=== PATIENT | male | born 1980 | race Caucasian/White ===

== ENCOUNTER 2017-04-07 16:23 | Outpatient (RCR) | payer OTHER, SELFPAY ==
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
--- NOTE | 2017-08-18 10:09 | HP.PTDCNRP_ITS ---
HP - Discharge Summary (1) - Patient Information FARSHAD NULL was seen in my office for initial evaluation on 04/07/17. The following Plan of Care was established for this patient: Initial Frequency: 1x/Week Initial Duration: 5 WEEKS - Anticipated Interventions Patient/Client Instruction: Educate patient on: Condition, Plan of Care, Risk Factors, Benefits of Fitness Program For the Purpose of:: To improve self management Therapeutic Exercise to Include: Strength training, Body mechanics, Postural training, Flexibilty training, Scapular Strength/Stabilization For the Purpose of:: To improve ability of physical actions for home/community/ work/leisure This patient was last seen in our office 04/07/17. Pertinent comments regarding their Physical therapy will appear below: This patient has not returned to Physical Therapy and is appropriate to return to MD for further follow-up as needed. At this point I will be discontinuing this patient from physical therapy. I would be happy to see this patient again in the future if found appropriate by the physician. Thank you! Camila Unger
== END 2017-04-07 19:00 | disposition home or self-care (01) ==
LOC: PT 16:23
PROVIDERS: Family Provider Family Medicine; PCP Family Medicine; Visit Provider Family Medicine
DX: M54.6 Pain in thoracic spine (principal); G89.29 Other chronic pain
CPT/HCPCS: 97161

== ENCOUNTER → 2017-10-19 13:51 | Outpatient (CLI) | payer OTHER, SELFPAY ==
--- NOTE | 2017-10-19 13:53 | ECHOD_ITS ---
Reason For Study: PVCs, dizziness. Procedure This was a 2D Doppler, Color Flow transthoracic echocardiogram. The exam was of fair technical quality due to body habitus. Exam performed in department. Left Ventricle Normal LV size. Left ventricular systolic function is normal. The estimated ejection fraction is 60 %. No evidence for diastolic dysfunction. No regional wall motion abnormalities noted. Right Ventricle Normal RV size. Normal systolic function. Atria Normal left atrium. Normal right atrium. No doppler evidence for ASD. Mitral Valve There is no mitral annular calcification. Normal mitral valve. Trivial mitral valve insufficiency. Tricuspid Valve Normal tricuspid valve. Trivial tricuspid valve insufficiency. Aortic Valve Trisinus/trileaflet aortic valve. Normal aortic valve. Pulmonic Valve The pulmonic valve is not well visualized. Great Vessels Normal sized aortic root. Pericardium/Pleural No pericardial effusion. MMode/2D Measurements & Calculations LVIDd: 4.6 cm IVSd: 1.0 cm Ao root diam: 2.7 cm LVIDs: 3.4 cm LVPWd: 1.0 cm RVDd: 3.3 cm FS: 27.2 % LAV(MOD-bp): 51.9 ml LA A4 area: 18.4 cm2 RA A4 area: 12.9 cm2 LAV(MOD-bp) Indexed: 23.6 ml/m2 LAV(MOD-sp2): 48.2 ml LAV(MOD-sp4): 55.8 ml Doppler Measurements & Calculations MV E max nabeel: 66.6 cm/sec Lat Peak E' Nabeel: 14.2 cm/sec Med Peak E' Nabeel: 10.4 cm/sec MV A max nabeel: 56.1 cm/sec E/E' lat: 4.7 E/E' med: 6.4 MV E/A: 1.2 Ao V2 max: 125.8 cm/sec LV V1 max: 88.0 cm/sec PA V2 max: 96.1 cm/sec Ao max P.3 mmHg LV V1 max P.1 mmHg PI dec slope: 343.8 cm/sec2 Interpretation Summary Left ventricular systolic function is normal. The estimated ejection fraction is 60 %. Trivial mitral valve insufficiency. Trivial tricuspid valve insufficiency. No evidence for diastolic dysfunction. Ordering Physician: Robert Menendez Referring Physician: Nazario Serrano Performed By: Elizabeth Cobb, CORAL, RVT
== END ==
PROVIDERS: Family Provider Family Medicine; PCP Family Medicine; Visit Provider Internal Medicine Cardiovascular Disease
DX: R42 Dizziness and giddiness (principal)
CPT/HCPCS: 93306

== ENCOUNTER → 2019-02-10 11:16 | Outpatient (CLI) | payer OTHER, SELFPAY ==
[2018-12-30 15:36] VITALS: BMI 32.0
--- NOTE | 2019-02-10 11:22 | US_ITS ---
STUDY: RENAL ULTRASOUND - COMPLETE REASON FOR EXAM: Male, 38 years old. Right flank pain. History of renal stones. TECHNIQUE: Ultrasound evaluation of the kidneys was performed with real-time and static mensah-scale imaging. COMPARISON: CT abdomen with oral contrast only April 27, 2016 FINDINGS: RIGHT KIDNEY: Normal location of the right kidney, which is normal in size. The right kidney measures 10.9 x 4.8 x 4.7 cm. There is a normal cortex of the right kidney. The renal cortex measures 1.7 cm. There is no right renal mass or cyst. Elongated 11 x 8 mm hyperechoic focus in the lower pole suggests a nonobstructing stone. There is no right hydronephrosis. DISTAL RIGHT URETER: There is non-visualization of the distal right ureter. There is no demonstrated right ureterovesical junction calculus. There is no demonstrated right ureteral jet. LEFT KIDNEY: Normal location of the left kidney, which is normal in size. The left kidney measures 11.4 x 5.1 x 6.4 cm. There is a normal cortex of the left kidney. The renal cortex measures 1.7 cm. There is no left renal mass or cyst. There are no left renal calculi. There is no left hydronephrosis. DISTAL LEFT URETER: There is non-visualization of the distal left ureter. There is no demonstrated left ureterovesical junction calculus. There is no demonstrated left ureteral jet. BLADDER: The urinary bladder was empty at the time of scanning, precluding evaluation. US/Kidney and Bladder IMPRESSION: 11 mm nonobstructing stone suggested at the lower pole of the right kidney. No hydronephrosis. Electronically Signed: Kenn Randolph MD at 14:05 EDT , Service support ,
== END ==
PROVIDERS: Family Provider Family Medicine; PCP Family Medicine; Referring Provider Family Medicine; Visit Provider Family Medicine
DX: N20.0 Calculus of kidney (principal)
CPT/HCPCS: 76770

== ENCOUNTER → 2019-02-22 | Outpatient (CLI) | payer OTHER, SELFPAY ==
[2018-12-30 15:36] VITALS: BMI 32.0
--- NOTE | 2019-02-22 16:45 | CT_ITS ---
STUDY: CT ABDOMEN AND PELVIS WITHOUT CONTRAST REASON FOR EXAM: Male, 38 years old. Right flank pain RADIATION DOSAGE (If Supplied By Facility): DLP = ( 1086.18 ) mGycm TECHNIQUE: Transaxial images were obtained from the dome of the diaphragm to the symphysis pubis without oral contrast, and without intravenous contrast. Sagittal and coronal images were reconstructed. Individualized dose optimization techniques were used for this CT. COMPARISON: CT abdomen April 27, 2016 FINDINGS: Evaluation of the abdominal viscera is limited in the absence of intravenous contrast. Right lung base groundglass and tree-in-bud opacities are present. The left lung base is clear. The visualized portions of the heart and pericardium are within normal limits. There are no calcified gallstones present. The liver demonstrates an unremarkable unenhanced appearance. The spleen is normal in size. The pancreas demonstrates an unremarkable unenhanced appearance. The adrenal glands are within normal limits. There are no obstructing renal stones. There is no hydronephrosis. Normal visualized stomach. There is no bowel obstruction or inflammation. Mild colonic diverticulosis is present. The appendix is normal. The aorta is normal in caliber. There is no abdominal or pelvic free air, free fluid, fluid collection or lymphadenopathy. There are no destructive osseous lesions. CT/Abdomen/Pelvis without Cont IMPRESSION: No acute abdominal or pelvic pathology demonstrated on this noncontrast CT. Mild colonic diverticulosis without evidence of inflammation. Electronically Signed: Robin Martinez, at 17:34 EDT Tel , Service support ,
== END | disposition home or self-care (01) ==
LOC: CT 16:43
PROVIDERS: Family Provider Family Medicine; PCP Family Medicine; Referring Provider Urology; Visit Provider Urology
DX: R31.9 Hematuria, unspecified (principal)
CPT/HCPCS: 74176

== ENCOUNTER → 2019-02-24 10:08 | Outpatient (CLI) | payer OTHER, SELFPAY ==
[2018-12-30 15:36] VITALS: BMI 32.0
[2019-02-24 12:19] LABS: Erythrocyte Sedimentation Rate 18 mm/hr (0-15)
[2019-02-24 12:24] LABS: Absolute Lymphocyte Count 1.52 X10^3/uL (0.83-4.51); Absolute Neutrophil Count 8.3 X10^3/uL (2.0-7.7); Basophil# 0.03 X10^3/uL; Basophil% 0.3 % (0-1); Eosinophil# 0.42 X10^3/uL; Eosinophils% 3.8 % (0-5); Hematocrit 43.9 % (40-54); Hemoglobin 14.5 g/dL (13.0-16.5); Lymphocyte # 1.52 X10^3/ul (4.0); Lymphocyte % 13.9 % (19-41); Mean Corpuscular Hgb 28.4 pg (27.0-32.0); Mean Corpuscular Volume 85.9 fL (80-94); Mean Platelet Vol. 11.8 fl (6.2-12.0); Monocyte# 0.61 X10^3/uL; Monocyte% 5.6 % (0-10); NRBC Flagged by Analyzer 0 % (0-5); Neutrophil # 8.28 X10^3/uL (2.7-7.7); Neutrophil % 75.8 % (47-70); Platelet Count 270 K/mm3 (150-450); Red Blood Count 5.11 M/mm3 (4.6-6.2); White Blood Count 10.9 K/mm3 (4.4-11.0)
[2019-02-24 12:45] LABS: AST(SGOT) 26 U/L (15-37); Alanine Aminotransfer ALT/SGPT 53 U/L (16-61); Albumin, Serum 3.8 g/dL (3.2-5.0); Alkaline Phosphatase 124 U/L (45-117); Anion Gap 7 (5-15); BUN 12 mg/dL (7-18); BUN/Creat Ratio 11.5 RATIO (10-20); Calcium,Total 9.2 mg/dL (8.5-10.1); Chloride 108 mmol/L (98-107); Creatinine, Serum 1.04 mg/dL (0.70-1.30); EST Glomerular Filtration Rate 85 mL/min (>60); Est Glom Filt Rate - Afr Amer 103 mL/min (>60); Glucose 88 mg/dL (74-106); Potassium 4.4 mmol/L (3.5-5.1); Protein, Total 7.8 g/dL (6.4-8.2); Rheumatoid Factor < 10.0 IU/mL (<15); Sodium Level 140 mmol/L (136-145)
[2019-02-28 09:55] LABS: ANTINUCLEAR ANTIBODIES DIRECT Negative (Negative)
== END ==
PROVIDERS: Family Provider Family Medicine; PCP Family Medicine; Visit Provider Family Medicine
DX: R91.8 Other nonspecific abnormal finding of lung field (principal)
CPT/HCPCS: 36415; 80053; 85025; 85652; 86038; 86140; 86431; 87385

== ENCOUNTER → 2019-03-09 06:47 | Outpatient (CLI) | payer OTHER, SELFPAY ==
[2018-12-30 15:36] VITALS: BMI 32.0
--- NOTE | 2019-03-09 06:49 | CT_ITS ---
STUDY: CT CHEST WITHOUT CONTRAST REASON FOR EXAM: Male, 38 years old. Groundglass appearance on prior chest radiograph. RADIATION DOSAGE (If Supplied By Facility): CTDIvol = ( 17.48 ) mGy, DLP = ( 607.31 ) mGycm TECHNIQUE: Transaxial imaging was performed without the administration of intravenous contrast material. Multiplanar coronal and sagittal images were reformatted. Individualized dose optimization techniques were used for this CT. COMPARISON: None. FINDINGS: The lungs are normal. There is no demonstrated pleural abnormality. Normal heart and pericardium. There are multiple small lymph nodes within the mediastinum, which are normal in size and morphology most compatible with reactive lymph hyperplasia. Normal hilar regions. Normal unenhanced pulmonary arteries. Normal aorta arch and descending thoracic aorta. Normal osseous structures. Small hiatal hernia. CT/Chest without Contrast IMPRESSION: No acute abnormality is seen. Electronically Signed: Abebe May, at 10:17 EDT , Service support ,
== END ==
PROVIDERS: Family Provider Family Medicine; PCP Family Medicine; Referring Provider Family Medicine; Visit Provider Family Medicine
DX: R91.8 Other nonspecific abnormal finding of lung field (principal)
CPT/HCPCS: 71250

== ENCOUNTER → 2019-08-23 11:03 | Outpatient (CLI) | payer OTHER, SELFPAY ==
[2018-12-30 15:36] VITALS: BMI 32.0
== END ==
PROVIDERS: PCP Family Medicine; Referring Provider Nurse Practitioner Family; Visit Provider Nurse Practitioner Family
DX: R00.2 Palpitations (principal); R42 Dizziness and giddiness
CPT/HCPCS: 93225; 93226

== ENCOUNTER → 2023-04-20 | Outpatient (CLI) | payer BC, SELFPAY ==
[2023-04-20 08:06] LABS: Bacteria 0 SEEN /hpf (None Seen); Mucous, Urine 0 SEEN /hpf (<or=2+); Red Blood Cells-Urine 0 SEEN /hpf (0-5); Squamous Epithelial Cells - UA 0 SEEN /hpf (0-5); White Blood Cells 0 SEEN /hpf (0-5)
[2023-04-20 10:12] LABS: Absolute Lymphocyte Count 2.62 X10^3/uL (0.83-4.51); Absolute Neutrophil Count 3.3 X10^3/uL (2.0-7.7); Basophil# 0.04 X10^3/uL; Basophil% 0.6 % (0-1); Eosinophil# 0.41 X10^3/uL; Eosinophils% 5.9 % (0-5); Hematocrit 48.7 % (40-54); Hemoglobin 15.3 g/dL (13.0-16.5); Lymphocyte # 2.62 X10^3/ul (0.83-4.51); Lymphocyte % 37.9 % (19-41); Mean Corp Hgb Conc 31.4 g/dL (32-36); Mean Corpuscular Hgb 27.6 pg (27.0-32.0); Mean Corpuscular Volume 87.9 fL (80-94); Mean Platelet Vol. 12.7 fl (6.2-12.0); Monocyte# 0.48 X10^3/uL; Monocyte% 6.9 % (0-10); NRBC Flagged by Analyzer 0 % (0-5); Neutrophil # 3.33 X10^3/uL (2.7-7.7); Neutrophil % 48.3 % (47-70); Platelet Count 249 K/mm3 (150-450); RBC Distribution Width CV 13.7 % (11.6-14.6); RBC Distribution Width SD 44.1 fl (35.1-43.9); Red Blood Count 5.54 M/mm3 (4.6-6.2); White Blood Count 6.9 K/mm3 (4.4-11.0)
[2023-04-20 10:21] LABS: Color, Urine Yellow (Yellow); Glucose, Dipstick Normal (Normal); Ketone-Dipstick Negative (Negative); Leukocyte Esterase-Dipstick Negative /ul (Negative); Nitrite-Dipstick Negative (Negative); Occult Blood-Urine 25 /ul (Negative); Protein-Dipstick Negative (Negative); Specific Gravity, Urine 1.015 (1.002-1.030); Urine Bilirubin Dipstick Negative (Negative); Urine Clarity Clear (Clear); Urine Urobilinogen Normal (Normal)
[2023-04-20 10:52] LABS: AST(SGOT) 17 U/L (15-37); Alanine Aminotransfer ALT/SGPT 41 U/L (16-61); Albumin, Serum 3.8 g/dL (3.2-5.0); Alkaline Phosphatase 98 U/L (45-117); Anion Gap 2 (5-15); BUN 10 mg/dL (7-18); BUN/Creat Ratio 10.6 RATIO (10-20); Calcium,Total 9.3 mg/dL (8.5-10.1); Chloride 109 mmol/L (98-107); Cholesterol 175 mg/dL (200); Creatinine, Serum 0.95 mg/dL (0.70-1.30); EST Glomerular Filtration Rate 93 mL/min (>60); Est Glom Filt Rate - Afr Amer 112 mL/min (>60); Globulin 3.7 g/dL (2.2-4.2); Glucose 95 mg/dL (74-106); High Density Lipoprotein 50 mg/dL; Potassium 4.5 mmol/L (3.5-5.1); Protein, Total 7.5 g/dL (6.4-8.2); Sodium Level 139 mmol/L (136-145); Triglycerides 102 mg/dL; Very Low Density Lipoprotein 20 mg/dL (5-40)
== END | disposition home or self-care (01) ==
LOC: MFPLAB 08:04
PROVIDERS: Nurse Practitioner Family; PCP Family Medicine; Visit Provider Family Medicine
DX: Z13.1 Encounter for screening for diabetes mellitus (principal); Z13.220 Encounter for screening for lipoid disorders; R10.9 Unspecified abdominal pain
CPT/HCPCS: 36415; 80053; 80061; 81001; 85025

== ENCOUNTER → 2025-05-08 | Outpatient (CLI) | payer OTHER, SELFPAY ==
[2025-05-08 12:27] LABS: Hematocrit 46.1 % (40-54); Hemoglobin 15.3 g/dL (13.0-16.5); Immature Granulocytes Count 0.030 X10^3/uL (0.0-0.0); Mean Corp Hgb Conc 33.2 g/dL (32-36); Mean Corpuscular Volume 84.7 fL (80-94); Mean Platelet Vol. 12.2 fl (6.2-12.0); NRBC Flagged by Analyzer 0 % (0-5); Platelet Count 255 K/mm3 (150-450); RBC Distribution Width CV 13.7 % (11.6-14.6); RBC Distribution Width SD 42.1 fl (35.1-43.9); Red Blood Count 5.44 M/mm3 (4.6-6.2); White Blood Count 8.1 K/mm3 (4.4-11.0)
[2025-05-08 12:58] LABS: AST(SGOT) 27 U/L (<=37); Alanine Aminotransfer ALT/SGPT 41 U/L (<=46); Albumin, Serum 4.5 g/dL (3.5-5.0); Alkaline Phosphatase 101 U/L (40-129); Anion Gap 10 (5-15); BUN 15 mg/dL (4-19); BUN/Creat Ratio 17.1 RATIO (10-20); Calcium,Total 9.8 mg/dL (7.6-11.0); Carbon Dioxide 25.5 mmol/L (21.0-32.0); Chloride 103 mmol/L (98-108); Cholesterol 197 mg/dL (<=200); Globulin 2.8 g/dL (2.2-4.2); Glucose 99 mg/dL (70-99); Low Density Lipoprotein Calc. 116 mg/dL; Potassium 4.5 mmol/L (3.3-5.1); Triglycerides 177 mg/dL; Uric Acid 7.2 mg/dL (3.5-7.2); Very Low Density Lipoprotein 35 mg/dL (5-40); cholesterol:hdl ratio screen 3.95
--- OUTSIDE RECORDS SUMMARY | 2025-05-08 13:57 | XMS RPT_ITS | CCD ---
Author Organization [facility] Care Team Providers Care Extraction Operator Name Role Phone ORACIO ALMAZANLATIA Unavailable Unavailable JONH GINNY Unavailable Unavailable ROBERT STRICKLAND Unavailable Unavailable Dr. Nazario Serrano Primary Care Provider [phone] Dr. Nazario Serrano Referring Provider Calos TRIPP, QASIM Nicholson Attending Provider Medications Current Medications Medication Drug Class(es) Dates Sig (Normalized) Sig (Original) cetirizine hydrochloride 10 mg oral tablet (1 source) Histamine-1 Receptor Antagonist Start: 01-01-2020 take 1 tablet by mouth once daily Cetirizine (Zyrtec) 10 mg tablet Active 10 MG PO DAILY January 01, 2020 12:00am famotidine 20 mg oral tablet (1 source) Histamine-2 Receptor Antagonist Start: 04-21-2023 take 20 mg by mouth once daily Famotidine Active 20 MG PO DAILY April 21, 2023 12:00am latanoprost 0.05 mg/ml ophthalmic solution (1 source) Prostaglandin Analog Start: 04-21-2023 Latanoprost Active 1 DRP OPHTHALMIC DAILY April 21, 2023 12:00am 24 hr metoprolol succinate 25 mg extended release oral tablet (6 sources) beta-Adrenergic Fabien Start: 02-18-2022 End: 10-22-2022 take 1 tablet by mouth once daily Metoprolol Succinate Active 0 .ROUTE .COMPLEX October 22, 2022 12:30pm TAKE 1 TABLET BY MOUTH EVERY DAY Start: 08-30-2019 End: 08-25-2021 take 1 tablet by mouth once daily Metoprolol Succinate Discontinued 0 .ROUTE .COMPLEX December 30, 2020 9:31am August 25, 2021 10:55am TAKE 1 TABLET BY MOUTH EVERY DAY Timolol (1 source) beta-Adrenergic Fabien Start: 04-21-2023 Timolo l Active 1 DRP OPHTHALMIC DAILY April 21, 2023 12:00am Completed/Discontinued Medications Medication Drug Class(es) Dates Sig (Normalized) Sig (Original) omeprazole 20 mg delayed release oral tablet (1 source) Proton Pump Inhibitor Start: 12-07-2017 End: 04-21-2023 take 1 tablet by mouth once daily Omeprazole Magnesium (Prilosec Otc) 20 mg tablet,delayed release (DR/EC) Discontinued 20 MG PO daily December 07, 2017 12:00am April 21, 2023 2:57pm travoprost 0.04 mg/ml ophthalmic solution (1 source) Prostaglandin Analog Start: 12-07-2017 End: 12-30-2018 take 0.004 drop(s) into the eye(s) once daily in the evening Travoprost (Travatan Z) 0.004 % drops Discontinued 1 DRP OPHTHALMIC EVERY EVENING December 07, 2017 12:00am December 30, 2018 3:37pm Problems Problem Classification Problem Date Documented Da te Episodic/Chronic Administrative/social admission (1 source) Patient encounter status; Translations: [Encounter for pre-employment examination] 05-31-2020 Episodic Cardiac dysrhythmias (3 sources) Ventricular premature depolarization; Translations: [Ectopic beats] Onset: 11-10-2017 02-07-2021 Chronic Cardiac dysrhythmias (1 source) Palpitations; Translations: [Palpitations] 12-30-2018 Episodic Conditions associated with dizziness or vertigo (1 source) Dizziness; Translations: [Dizziness and giddiness] 08-12-2017 Episodic Unclassified (1 source) Unknown / UNK(Unknown) Onset: 11-10-2017 Results Test Name Value Interpretation Reference Range Facility Absolute lymphocyte countOrd ered By: Carina Perry on 04-20-2023 Lymphocytes Auto (Unsp spec) [#/Vol] 2.62 10*3/uL 0.83-4.51 [facility] Basophil percentageOrdered B y: Carina Perry on 04-20-2023 Basophil percentage 0 SEEN /hpf 0-5 [facility] Basophils/100 WBC (Bld) 0.6 % 0-1 [facility] Bilirubin [Mass/Vol] 0.30 mg/dL 0.20-1.00 [facility] Comment on above: For patients on eltr ombopag therapy, use of Dimension [place] TBIL is not recommended. Chloride [Moles/Vol] 109 mmol/L 98-107 [facility] Cholesterol [Mass/Vol] 175 mg/dL <200 [facility] Comment on above: <200 mg/dL Desirable 200-240 mg/dL Borderline >240 mg/dL High Risk Eosinophils/100 WBC (Bld) 5.9 % 0-5 [facility] Glucose [Mass/Vol] 95 mg/dL 74-106 [facility] Neutrophils (Bld) [#/Vol] 3.3 10*3/uL 2.0-7.7 [facility] Neutrophils/100 WBC (Bld) 48.3 % 47-70 [facility] Potassium [Moles/Vol] 4.5 mmol/L 3.5-5.1 [facility] Protein [Mass/Vol] 7.5 g/dL 6.4-8.2 [facility] Sodium [Moles/Vol] 139 mmol/L 136-145 [facility] Triglyceride [Mass/Vol] 102 mg/dL <199 [facility] Comment on above: The drugs N-Acetylcy steine and Metamizole may falsely depress this assay.Serum Triglycerides Reference Interval Normal <150 mg/dL Borderline high 150 - 199 mg/dL High 200 - 499 mg/dL Very High > or = 500 mg/dL WBC (Bld) [#/Vol] 6.9 10*3/uL 4.4-11.0 [facility] Bilirubin Test strip Ql (U)O rdered By: Carina Perry on 04-20-2023 Bilirubin Ql (U) Negative Negative [facility] Blood erythrocytes count (nu mber/volume)Ordered By: Carina Perry on 04-20-2023 RBC (Bld) [#/Vol] 5.54 10*6/uL 4.6-6.2 [facility] Blood hemoglobin measurement (mass/volume)Ordered By: Carina Perry on 04-20-2023 Hemoglobin (Bld) [Mass/Vol] 15.3 g/dL 13.0-16.5 [facility] Blood lymphocytes/100 leukoc ytesOrdered By: Carina Perry on 04-20-2023 Lymphocytes/100 WBC (Bld) 37.9 % 19-41 [facility] Blood monocytes/100 leukocyt esOrdered By: Carina Perry on 04-20-2023 Monocytes/100 WBC (Bld) 6.9 % 0-10 [facility] Blood platelet mean volumeOr dered By: Carina Perry on 04-20-2023 Platelet mean volume (Bld) [Entitic vol] 12.7 fL 6.2-12.0 [facility] Determination of erythrocyte mean corpuscular volume (MCV)Ordered By: Carina Perry on 04-20-2023 MCV (RBC) [Entitic vol] 87.9 fL 80-94 [facility] Hematocrit Auto (Bld) [Volum e fraction]Ordered By: Carina Perry on 04-20-2023 Hematocrit (Bld) [Volume fraction] 48.7 % 40-54 [facility] Ketones Test strip Ql (U)Ord ered By: Carina Perry on 04-20-2023 Ketones Ql (U) Negative Negative [facility] Laboratory - Chemistry and C hemistry - challengeOrdered By: Carina Perry on 04-20-2023 ALP [Catalytic activity/Vol] 98 U/L 45-117 [facility] ALT [Catalytic activity/Vol] 41 U/L 16-61 [facility] CO2 [Moles/Vol] 28.0 mmol/L 21.0-32.0 [facility] Globulin (S) [Mass/Vol] 3.7 g/dL 2.2-4.2 [facility] Urea nitrogen/Creatinine [Mass ratio] 10.6 mg/mg 10-20 [facility] Laboratory - Hematology and Cell countsOrdered By: Carina Perry on 04-20-2023 Erythrocyte distribution width (RBC) [Entitic vol] 44.1 fL 35.1-43.9 [facility] Erythrocyte distribution width (RBC) [Ratio] 13.7 % 11.6-14.6 [facility] Immature granulocytes/100 WBC (Bld) 0.400 % 0.0-0.9 [facility] Comment on above: IG% - Immature Granu locytes (promyelocytes, myelocytes and metamyelocytes) > 1% indicates that a LEFT SHIFT is Present. MCH (RBC) [Entitic mass] 27.6 pg 27.0-32.0 [facility] Nucleated RBC/100 WBC (Bld) [Ratio] 0 % 0-5 [facility] MCHC Auto (RBC) [Mass/Vol]Or dered By: Carina Perry on 04-20-2023 MCHC (RBC) [Mass/Vol] 31.4 g/dL 32-36 [facility] Mucus LM Ql (Urine sed)Order ed By: Carina Perry on 04-20-2023 Mucus Ql (Urine sed) 0 SEEN /hpf [facility] Nitrite Test strip Ql (U)Ord ered By: Carina Perry on 04-20-2023 Nitrite Ql (U) Negative Negative [facility] No Panel InformationOrdered By: Carina Perry on 04-20-2023 Estimated GFR (MDRD) Amer 112 mL/min >60 [facility] Comment on above: GFR Calc Estimated GFR (MDRD) Non-Af Amer 93 mL/min >60 [facility] Comment on above: Non- GFR Calc Platelets bldOrdered By: [facility] Perry on 04-20-2023 Platelets (Bld) [#/Vol] 249 10*3/uL 150-450 [facility] Protein Test strip Ql (U)Ord ered By: Carina Perry on 04-20-2023 Protein Ql (U) Negative Negative [facility] Serum or plasma albumin leandro urement (mass/volume)Ordered By: Carina Perry on 04-20-2023 Albumin [Mass/Vol] 3.8 g/dL 3.2-5.0 [facility] Serum or plasma albumin/glob ulin mass ratioOrdered By: Carina Perry on 04-20-2023 Albumin/Globulin [Mass ratio] 1.0 {ratio} 0.9-2.4 [facility] Serum or plasma calcium leandro urement (mass/volume)Ordered By: Carina Perry on 04-20-2023 Calcium [Mass/Vol] 9.3 mg/dL 8.5-10.1 [facility] Serum or plasma cholesterol in HDL measurement (mass/volume)Ordered By: Carina Perry on 04-20-2023 Cholesterol in HDL [Mass/Vol] 50 mg/dL >40 [facility] Comment on above: The drugs N-Acetylcy steine and Metamizole may falsely depress this assay. Reference Range HDL <40 mg/dL Low HDL Cholesterol HDL >or= 60 mg/dL High HDL Cholesterol Serum or plasma cholesterol in VLDL measurement (mass/volume)Ordered By: Carina Perry on 04-20-2023 Cholesterol in VLDL [Mass/Vol] 20 mg/dL 5-40 [facility] Serum or plasma creatinine m easurement (mass/volume)Ordered By: Carina Perry on 04-20-2023 Creatinine [Mass/Vol] 0.95 mg/dL 0.70-1.30 [facility] Comment on above: The validity of the calculated GFR & GFRAA in patients over 70 years has not been determined. Clinical correlation is essential. Serum or plasma low density lipoprotein (LDL) cholesterol measurement (mass/volume)Ordered By: Carina Perry on 04-20-2023 Cholesterol in LDL [Mass/Vol] 105 mg/dL 0-130 [facility] Serum or plasma urea nitroge n measurement (mass/volume)Ordered By: Carina Perry on 04-20-2023 Urea nitrogen [Mass/Vol] 10 mg/dL 7-18 [facility] Squamous epithelial cells de tection in urine sediment by light microscopyOrdered By: Carina Perry on 04-20-2023 Epithelial cells.squamous LM Ql (Urine sed) 0 SEEN /hpf 0-5 [facility] Thin prep Papanicolaou smear with manual screeningOrdered By: Carina Perry on 04-20-2023 Thin prep Papanicolaou smear with manual screening 17 U/L 15-37 [facility] Thin prep Papanicolaou smear with manual screening 2 5-15 [facility] Urine blood detectionOrdered By: Carina Perry on 04-20-2023 RBC Ql (U) 25 /ul Negative [facility] RBC Ql (U) 0 SEEN /hpf 0-5 [facility] Urine clarityOrdered By: [facility] Perry on 04-20-2023 Clarity (U) Clear Clear [facility] Urine color determinationOrd ered By: Carina Perry on 04-20-2023 Color (U) Yellow Yellow [facility] Urine glucose detectionOrder ed By: Carina Perry on 04-20-2023 Glucose Ql (U) Normal mg/dl Normal [facility] Urine leukocyte esterase det ection by dipstickOrdered By: Carina Perry on 04-20-2023 Leukocyte esterase Test strip Ql (U) Negative Negative [facility] Urine pHOrdered By: Carina ortiz on 04-20-2023 pH (U) 5.0 [pH] 5.0 - 8.0 [facility] Urine sediment bacteria coun t by microscopy (number/high power field)Ordered By: Carina Perry on 04-20-2023 Bacteria LM.HPF (Urine sed) [#/Area] 0 /[HPF] None Seen [facility] Urine specific gravity measu rementOrdered By: Carina Perry on 04-20-2023 Specific gravity (U) [Rel density] 1.015 1.002-1.03 0 [facility] Urobilinogen Auto test strip Ql (U)Ordered By: Carina Perry on 04-20-2023 Urobilinogen Ql (U) Normal mg/dl Normal [facility] Cardiology Visit Reporton Cardiology Visit Report [facility] [address] [place] [address] OFFICE VISIT Date of Service: 02/18/22 MR#: [id number] Acct: [id number] Name: FARSHAD SWANN Rep #: [id number] : 1980 Provider: TIAN suarez Age/Sex: 41/M Location: [facility] Status: Signed HPI HPI History of Present Illness Details: This is a 41-year-old white male who presents today for outpatient cardiovascular follow-up visit. He has a history of cardiac ectopy with PACs and PVCs. From a cardiac standpoint, the patient is doing well. He denies any palpitations, chest pain, pressure or heaviness. He denies SOB, Orthopnea, and PND. He does not have bleeding issues; no blood in urine, stool or nosebleeds. He denies any decrease in energy level, myalgias, or claudication. He does not have edema, or sudden weight gain. He denies dizziness, lightheadedness, syncopal or near syncopal episodes, and headaches. Intake Vital Signs 02/14/21 15:10 02/18/22 15:22 02/18/22 15:22 Height 6 ft 6 ft 6 ft Weight: 236 lb BMI 32.0 BP 124/81 H Blood Pressure Location Lt brachial Position Sitting Respiration 18 Pulse 81 Pulse Source Monitor Pulse Oximetry (%) 97 Intake Visit Reasons: 1 Y FU Microbiology Lab Technician Required: No Is patient in pain?: No Allergies No Known Allergies Allergy (Verified 02/18/22 15:36) Medications omeprazole magnesium 20 mg tablet,delayed release (Prilosec OTC) 20 mg PO QDAY 12/07/17 [History Confirmed 02/18/22] cetirizine 10 mg tablet (Zyrtec) 10 mg PO DAILY PRN 01/01/20 [History Confirmed 02/18/22] metoprolol succinate 25 mg tablet,extended release 24 hr 25 mg PO DAILY 02/18/22 [History Confirmed 02/18/22] PFSH Medical History (Reviewed 02/18/22 @ 15:36 by Rosy Hackett SECURITY SOLUTIONS ENGINEER, [employer]UTIONS ENGINEER-C) Dizziness Ectopic cardiac beats Palpitations Family History Grandfather Myocardial infarction, Onset Age: 40 Grandfather Cardiac murmur Uncle Heart disease Social History Smoking Status: Never smoker alcohol intake: current details: occasional substance use type: does not use caffeine: Yes Type: carbonated beverages Number of servings: 2 ROS Const Const: Negative for fatigue, weakness, fever(s), headache(s), chills, frequent falls, weight gain or weight loss Eyes Eyes: Negative for blind spots, loss of peripheral vision, transient loss of vision, blurry vision, change in vision, double vision, floaters or tunnel vision ENT ENT: Negative for headache(s), dizziness, Nosebleed/epistaxis, balance problems or neck pain Cardio Chest Pain: No Palpitations: No Edema: None Muscle aches with walking: None Resp Respiratory: Negative for SOB with activity, SOB at rest or SOB orthopnea SOB lying down GI GI: Negative nausea, vomiting, heartburn, bloating, vomiting blood/hematemesis, bright, red blood in stools or black,tarry stools Musc Musc: Negative for muscle aches/ myalgia, muscle weakness, joint pain or balance problems Neuro Neuro: Negative for dizziness, lightheadedness, near syncope, syncope, orthostatic symptoms, frequent falls, headache(s), weakness, blurry vision or double vision Wei Hematologic/Lymphatic: Negative for easy bleeding or easy bruising Endo Endo: Negative for fatigue Cardiology Exam Const Appearance: cooperative, healthy appearing, comfortable, no acute distress, well developed and well groomed Nutritional Appearance: overweight Orientation: alert, awake and oriented x3 Head Head: normal to inspection, normocephalic and atraumatic Ears: hearing grossly normal bilaterally Nose: external nose normal Face and Sinus: face symmetric Eyes Eyelids: eyelids normal Conjunctivae: conjunctivae normal Pupils: PERRL EOM: EOM intact bilaterally Neck Neck: normal visual inspection and full ROM Carotids: normal carotid upstroke Chest Chest inspection: normal inspection of the chest, symmetric chest movement and normal respiratory effort Auscultation: Bilateral: Clear to Auscultation Cardio Palpation: normal PMI Rate: regular rate Rhythm: regular rhythm; Negative ectopic beats Heart sounds: S1 normal and S2 normal GI GI: normal to inspection, soft and bowel sounds present Neuro General: patient alert, patient awake, patient oriented x3, gait normal and moves all extremities Skin Skin: no rashes or lesions noted Extremities Pulses: Normal: Right Radial Pulse and Left Radial Pulse Lower Extremity Edema: None: Bilateral Psych Psychological: normal affect Supplemental Info Supplemental Information Echocardiogram: 10-19-2017 Interpretation Summary Left ventricular systolic function is normal. The estimated ejection fraction is 60 %. Trivial mitral (more content not included)... Normal [facility] [id number] 02-25-2021 SARS-CoV-2 (COVID-19) IgG Ab [Presence] in Serum or Plasma by Immunoassay < 0.00 Low 0.00-0.99 [facility] Comment on above: Result Comment: It is yet undetermined what level of antibody to SARS-CoV-2 spike protein correlates to immunity against developing symptomatic SARS-CoV-2 disease. Studies are underway to measure the quantitative levels of specific SARS-CoV-2 antibodies following vaccination. Such studies will provide valuable insights into the correlation between protection from vaccination and antibody levels. Interpretation: Negative < 1.0 Positive > or = 1.0 Method: SIEMENS RSI ([employer]) IM SARS SEMI-QUANT IGG ABS * This test has not been reviewed by the FDA * Use of this test is limited to laboratories that are certified under Clinical Laboratory Improvement Amendments of 1988 (CLIA) to perform high-complexity testing. * Negative results do not preclude acute SARS-CoV-2 infection. If acute infection is suspected, direct testing for SARS-CoV-2 is necessary. * Results from antibody testing should not be used to diagnose or exclude acute SARS-CoV-2 infection. * Positive results may be due to past or present infection with wwy-[id number]-2 coronovirus strains, such as coronavirus HKU1, NL63, OC43, or 229E. Performed By: #### L 3890.6500 #### [facility] [address] [place], [address] CNOVon 11-10-2017 CNOV Office Visit (CARDMN) ----FARSHAD SWANN ([id number]) 1980 MDate Time Provider Department11/10/17 1:45 PM GINNY ALMAZAN During your visit today, we recorded the following information about you: Pulse Blood pressure Weight Height 78/minute 115/79 99.3 kg 1.829 Joshua Almazan MD, 11/11/2017 3:30 PM [facility] Department of Cardiovascular MedicineSECTION OF CARDIAC PACING and ELECTROPHYSIOLOGYOUTPATIENT VISIT DATE November 10, 2017OUTPATIENT VISIT TYPENEWPRIMARY CARE PHYSICIAN:Nazario Serrano MD ([facility])[address] [place], [place] [address]Jeerr: [phone]: [phone] PHYSICIAN:Robert Strickland MD ([facility])[address] [place] [id number] COMPLAINT:PalpitationsHISTOR Y OF PRESENT ILLNESS:Mr. Swann is a 37 year old male who presents today for palpitations. He hasa negative PMH.The patient reports that his symptoms started a few months ago and consist offeeling a a skipped beat in the chest followed by a burning sensation. Episodesinitially used to occur for one beat and then progressed to 2-3 beats at atime. The episodes occur several times a day and mostly during the evening butcan occur at any time. They are not associated with exertion, emotionaldistress, or food intake. He has not had any syncope, presyncope, chest pain,or shortness of breath.He reports occasional episodes of dizziness that do not coincide with his chestsymptoms.The patient initially had a 24-hour holter monitor done and was reported ashaving PVCs, SVT, and pauses. This was reviewed by his field laboratory operator and thefindings were attributed to motion artifact and when reread by thecardiologist, the holter monitor showed NSR and occasional PVCs. He thenreceived a 30 day monitor that showed only 1 pause of 3-4 second duration wilethe patient was sleeping at 4 AM. He reports that an echo was done and wasnormal.PAST MEDICAL HISTORYDiagnosis Date- Acid reflux- Glaucoma secondary d/t injury- Kidney stones- Palpitations- PVC (premature ventricular contraction)PAST SURGICAL HISTORYProcedure Laterality Date- EXTRACTION ERUPTED TOOTH/EXRSOCIAL HISTORYSocial HistorySubstance Use Topics- Smoking status: Never Smoker- Smokeless tobacco: Never Used- Alcohol use Yes Comment: whiskey, couple glasses a weekFAMILY HISTORYProblem Relation Age of Onset- Hyperlipidemia Mother- Hypertension Mother- Stroke Father- Carotid Disease Father- No Known Problems SisterALLERGIES:ALLERGIESNo Known AllergiesMEDICATIONS:travopr ost (TRAVATAN Z) 0.004 % ophthalmic drops Use 1 Drop in the right eyedaily at bedtime.omeprazole (PRILOSEC) 20 mg capsule Take 1 capsule by mouth once daily.General, constitutional: Weight loss or gain- No, Fever or chills-No,Weakness-No, Trouble sleeping-No.Head, Eyes, Ears, Mouth: Headache, head injury-No, Glasses or contactlenses-No, Pain-No, Impaired vision-No, Decreased hearing-No, Ringing inears-No, Nose bleeds-No, Dental difficulties-No, Bleeding gums-No, Dentures-No.Neck: Swelling-No, Pain-No, Stiffness-No.Respiratory: Cough-No, Spitting up blood-No, Shortness of breath-No, Wheezingor asthma-No.Musculoskeletal: Muscle or joint pain or stiffness-No, Joint swelling-No.Gastrointestinal : Difficulty swallowing-No, Heartburn-No, Change in bowelhabits-No, Blood in stool, Dark black stools-No.Neurological/Psych iatric: Weakness, paralysis-No, Numbness-No, Tingling-No,Tremor-No, Nervousness or anxiety-No, Depressed mood-No, Memory loss-No.Skin: Rash-No, Itching-No.Hematological: Easy bruising-No, Easy bleeding-No.Endocrine: Heat or cold intolerance-No, Excessive sweating-No, Frequenturination-No, Frequent thirst-No.Belinda Simpson, RNPHYSICAL EXAMINATION:BP 115/79 Pulse 78 Ht 182.9 cm (6') Wt 99.3 kg (219 lb) BMI 29.70kg/m?General: AOx3, pleasantHead and neck: no JVDLungs: clear with good bilateral air entryCardiac: RRR. Normal S1 and S2, no murmurAbdomen: positive bowel sounds, soft, nontender, nondistendedExtremities: No edemaCARDIOVASCULAR MEDICINE TESTING:ECG: Normal sinus rhythm with a FL of 124 ms, and a QTc of 417 msIMPRESSION and PlanMr. Hue is a 37 year old healthy male presenting with palpitations.1. PalpitationsHis palpitations have been present for several months and are not associatedwith other concerning or alarming symptoms. The holter monitor reportedlyshowed occasional PVCs but was otherwise normal when read by his field laboratory operator.His 30 monitor was only positive for a 3-4 second pause. It is very likely thathis symptoms may be related to occasional PVCs, however it doesn't seem fromhis cardiac monitoring that he has a significant burden of PVCs, and with anormal echo it is unlikely that there is a more serious underlying cardiaccause of his symptoms. We reassured the patient and informed him to monitor hissymptoms and if they become severe or untolerable we can reassess for thepresence of PVCs and consider a beta fabien. And therefore for now nointervention or treatment is indicatedTo note the patient reported snoring and symptoms of sleep apnea and thereforewe recommended he gets evaluated for BERNABE.Carter Chew MDInternal Medicine, PGY-1CHenry County Hospitalger: [id number]: Addedum:We are seeing the patient for palpitations. He tells me that Holter monitoringdone shows evidence of intermittent, but infrequent PVCs. According to yournote, reported episodes of SVT and long pauses were mostly related tosignificant underlying motion artifact. I do not have those rhythm strips forreview. Longer term monitoring has shown evidence of pauses that occurpredominately at night and as long as 3-4 seconds. He does not have any episodeof syncope and has good exercise tolerance without any limitations. He doesreport some snoring in his reports possible apneic spells at night and forthat reason, I would suggest further work up for sleep apnea. His pauses arepredominately nocturnal and do not necessarily indicate an element of sicksinus syndrome. Furthermore, he does not have any symptoms of the same. Itherefore reassurred him as to that effect. I understand that some of hispalpitations can be related to PVC and in the setting of underlyingstructurally normal heart, I do not think that further evaluation is needed atthis point, unless these symptoms become significantly more frequent down theroad. I also indicated that no specific therapy is needed for now. He willfollow up with you as indicated and I instructed him to call us should heexperience any worsening palpitations.I reviewed all clinical information and re-elicited crucial information fromthe patient to confirm the pertinent history.? Related physical findings wereconfirmed.? Relevant ECGs, monitor rhythm strips were reviewed as well as otherpertinent test results. Recommendations and plans were reviewed with thepatient.Bertin Quan Provider: ROBERT STRICKLAND [[id number]]Allergies As of Date: 11/10/2017(No Known Allergies)Date Reviewed: 11/10/2017Reviewed by: Belinda Taylor) DENISE Simpson - Fully AssessedPrimary Visit Diagnosis:Palpitations [R00.2]Prescriptions as of 11/10/2017 Sig: TRAVOPROST 0.004 % EYE DROPS Use 1 Drop in the right eye d* * OMEPRAZOLE 20 MG CAPSULE,MARIA A* Take 1 capsule by mouth once *Problem List As Of Date 11/10/2017 Noted Resolved Pilonidal cyst [L05.91] INVALID FOR*Medications Discontinued During This Encounter timolol (TIMOPTIC-XE) 0.5 % ophthalm* 07/11/2016 11/10/2017 Class: Historical Med Sig: Disc: Reason for discontinue is not on file.Letter TextAUTHORIZATION FOR THE RELEASE OF MEDICAL INFORMATIONFROM OTHER HEALTHCARE FACILITIESPATIENT NAME: Farshad Swann CC NO.: [id number] SECURITY NO.: [id number] : 1980ADDRESS: [address] [place] [address]ZFVRCP FOR DISCLOSURE: CONTINUITY OF CARERequest Information from:[facility] CenterPLEASE SEND INFORMATION KARISSA PATIENT IS IN CLINIC HERE TODAY.Release Medical Information to:Ginny Almazan M.D. FAX: [phone] [place] [phone] hereby authorize [facility] to release the healthinformation indicated below that is contained in my patient records to [facility]. I understand and acknowledge that this mayinclude treatment for physical and mental illness, alcohol/drug abuse, and orHIV/AIDS test results or diagnoses. This authorization does not includepermission to release outpatient Psychotherapy Notes(*) as defined below.The release of Psychotherapy Notes requires a separate authorization.*Psychotherapy Notes are defined as notes that document private, joint,group, or family counseling sessions that are from the rest of apatient?s medical record. Emergency Department Reports Heart Cath Reports / Films Discharge Summary Laboratory Reports History AND Physical x Echocardiography Reports EKGs Operative Reports Stress Test Results x Other (Specify)30 day monitorThis consent is subject to revocation at any time except to the extent theaction has been taken thereon. This authorization and consent will inone year from the date of authorization written below.I understand that the Recipient of my health information may be charged forthe service of releasing medical information.Your health care (or payment for care) will not be affected by whether or notyou sign this authorization. Once your health care information is released,redisclosure of your health care information by the Recipient may no longerbe protected by law. /Farshad Swann November 10, 2017 Signature of Patient/Legal Guardian Printed Name Relatio nship if not PatientLetter Text Fidelina Hoffman and Deepa Lord Departmentof Cardiovascular MedicineSkindred [facility] of Cardiac Pacing and [address] [place], [place] [address]Exlsqk: [phone] May 2017Nazario Serrano MD[address] [place] [address]Iqnlv: [phone]: [phone]: Patient Name: Farshad Swann Date of : 1980 Clinic Number: [id number] Dr. Serrano:It was a pleasure to see your patient, Farshad Swann, on 11/10/2017 in theCardiac Pacing and Electrophysiology outpatient clinic today. Mr. Swann agustin 37 year old male who presents today for palpitations. He has a negativePMH.The patient reports that his symptoms started a few months ago and consist offeeling a a skipped beat in the chest followed by a burning sensation.Episodes initially used to occur for one beat and then progressed to 2-3beats at a time. The episodes occur several times a day and mostly during theevening but can occur at any time. They are not associated with exertion,emotional distress, or food intake. He has not had any syncope, presyncope,chest pain, or shortness of breath.He reports occasional episodes of dizziness that do not coincide with hischest symptoms.The patient initially had a 24-hour holter monitor done and was reported ashaving PVCs, SVT, and pauses. This was reviewed by his field laboratory operator and thefindings were attributed to motion artifact and when reread by thecardiologist, the holter monitor showed NSR and occasional PVCs. He thenreceived a 30 day monitor that showed only 1 pause of 3-4 second durationwile the patient was sleeping at 4 AM. He reports that an echo was done andwas normal.PAST MEDICAL HISTORYDiagnosis Date- Acid reflux- Glaucoma secondary d/t injury- Kidney stones- Palpitations- PVC (premature ventricular contraction)PAST SURGICAL HISTORYProcedure Laterality Date- EXTRACTION ERUPTED TOOTH/EXRSOCIAL HISTORYSocial HistorySubstance Use Topics- Smoking status: Never Smoker- Smokeless tobacco: Never Used- Alcohol use Yes Comment: whiskey, couple glasses a weekFAMILY HISTORYProblem Relation Age of Onset- Hyperlipidemia Mother- Hypertension Mother- Stroke Father- Carotid Disease Father- No Known Problems SisterALLERGIES:ALLERGIESNo Known AllergiesMEDICATIONS:travopr ost (TRAVATAN Z) 0.004 % ophthalmic drops Use 1 Drop in the righteye daily at bedtime.omeprazole (PRILOSEC) 20 mg capsule Take 1 capsule by mouth once daily.General, constitutional: Weight loss or gain- No, Fever or chills-No,Weakness-No, Trouble sleeping-No.Head, Eyes, Ears, Mouth: Headache, head injury-No, Glasses or contactlenses-No, Pain-No, Impaired vision-No, Decreased hearing-No, Ringing inears-No, Nose bleeds-No, Dental difficulties-No, Bleeding gums-No,Dentures-No.Neck: Swelling-No, Pain-No, Stiffness-No.Respiratory: Cough-No, Spitting up blood-No, Shortness of breath-No,Wheezing or asthma-No.Musculoskeletal: Muscle or joint pain or stiffness-No, Joint swelling-No.Gastrointestinal : Difficulty swallowing-No, Heartburn-No, Change in bowelhabits-No, Blood in stool, Dark black stools-No.Neurological/Psych iatric: Weakness, paralysis-No, Numbness-No, Tingling-No,Tremor-No, Nervousness or anxiety-No, Depressed mood-No, Memory loss-No.Skin: Rash-No, Itching-No.Hematological: Easy bruising-No, Easy bleeding-No.Endocrine: Heat or cold intolerance-No, Excessive sweating-No, Frequenturination-No, Frequent thirst-No.Belinda Simpson, RNPHYSICAL EXAMINATION:BP 115/79 Pulse 78 Ht 182.9 cm (6') Wt 99.3 kg (219 lb) BMI 29.70kg/m?General: AOx3, pleasantHead and neck: no JVDLungs: clear with good bilateral air entryCardiac: RRR. Normal S1 and S2, no murmurAbdomen: positive bowel sounds, soft, nontender, nondistendedExtremities: No edemaCARDIOVASCULAR MEDICINE TESTING:ECG: Normal sinus rhythm with a FL of 124 ms, and a QTc of 417 msIMPRESSION and PlanMr. Hue is a 37 year old healthy male presenting with palpitations.1. PalpitationsHis palpitations have been present for several months and are not associatedwith other concerning or alarming symptoms. The holter monitor reportedlyshowed occasional PVCs but was otherwise normal when read by hiscardiologist. His 30 monitor was only positive for a 3-4 second pause. It isvery likely that his symptoms may be related to occasional PVCs, however itdoesn't seem from his cardiac monitoring that he has a significant burden ofPVCs, and with a normal echo it is unlikely that there is a more seriousunderlying cardiac cause of his symptoms. We reassured the patient andinformed him to monitor his symptoms and if they become severe or untolerablewe can reassess for the presence of PVCs and consider a beta fabien. Andtherefore for now no intervention or treatment is indicatedTo note the patient reported snoring and symptoms of sleep apnea andtherefore we recommended he gets evaluated for BERNABE.Carter Chew MDInternal Medicine, PGY-1Addedum:We are seeing the patient for palpitations. He tells me that Holtermonitoring done shows evidence of intermittent, but infrequent PVCs.According to your note, reported episodes of SVT and long pauses were mostlyrelated to significant underlying motion artifact. I do not have thoserhythm strips for review. Longer term monitoring has shown evidence ofpauses that occur predominately at night and as long as 3-4 seconds. He doesnot have any episode of syncope and has good exercise tolerance without anylimitations. He does report some snoring in his reports possible apneicspells at night and for that reason, I would suggest further work up forsleep apnea. His pauses are predominately nocturnal and do not necessarilyindicate an element of sick sinus syndrome. Furthermore, he does not have anysymptoms of the same. I therefore reassurred him as to that effect. Iunderstand that some of his palpitations can be related to PVC and in thesetting of underlying structurally normal heart, I do not think that furtherevaluation is needed at this point, unless these symptoms becomesignificantly more frequent down the road. I also indicated that no specifictherapy is needed for now. He will follow up with you as indicated and Iinstructed him to call us should he experience any worsening palpitations.I would like to thank you for allowing me to participate in Farshad Swann'scare. Please feel free to call me with any further questions regarding hisarrhythmia. I will keep you updated as to their progress with us.Sincerely,NOAM Hoffman/anatoliy(signed electronically to expedite mailing) Status:Closed by GINNY ALMAZAN MD, I on 11/11/17 Normal [facility] PROGRESSon 11-10-2017 PROGRESS HNO ID: [id number] thor: SIDNEY Quanervice: (none)Author Type: PhysicianType: Progress NotesFiled: 11/11/2017 3:30 PMNote Text:Heart and Vascular InstituteMachipongo and Deepa Lord Department of Cardiovascular MedicineSECTION OF CARDIAC PACING and ELECTROPHYSIOLOGYOUTPATIENT VISIT DATE November 10, 2017OUTPATIENT VISIT TYPENEWPRIMARY CARE PHYSICIAN:Nazario Serrano MD ([facility])[address] [place], [place] [address]Mkrar: [phone]: [phone] PHYSICIAN:Robert Strickland MD ([facility])[address] [place] [id number] COMPLAINT:PalpitationsHISTOR Y OF PRESENT ILLNESS:Mr. Swann is a 37 year old male who presents today for palpitations. Hehas a negative PMH.The patient reports that his symptoms started a few months ago and consistof feeling a a skipped beat in the chest followed by a burning sensation.Episodes initially used to occur for one beat and then progressed to 2-3beats at a time. The episodes occur several times a day and mostly duringthe evening but can occur at any time. They are not associated withexertion, emotional distress, or food intake. He has not had any syncope,presyncope, chest pain, or shortness of breath.He reports occasional episodes of dizziness that do not coincide with hischest symptoms.The patient initially had a 24-hour holter monitor done and was reportedas having PVCs, SVT, and pauses. This was reviewed by his field laboratory operator andthe findings were attributed to motion artifact and when reread by thecardiologist, the holter monitor showed NSR and occasional PVCs. He thenreceived a 30 day monitor that showed only 1 pause of 3-4 second durationwile the patient was sleeping at 4 AM. He reports that an echo was doneand was normal.PAST MEDICAL HISTORYDiagnosis Date- Acid reflux- Glaucoma secondary d/t injury- Kidney stones- Palpitations- PVC (premature ventricular contraction)PAST SURGICAL HISTORYProcedure Laterality Date- EXTRACTION ERUPTED TOOTH/EXRSOCIAL HISTORYSocial HistorySubstance Use Topics- Smoking status: Never Smoker- Smokeless tobacco: Never Used- Alcohol use Yes Comment: whiskey, couple glasses a weekFAMILY HISTORYProblem Relation Age of Onset- Hyperlipidemia Mother- Hypertension Mother- Stroke Father- Carotid Disease Father- No Known Problems SisterALLERGIES:ALLERGIESNo Known AllergiesMEDICATIONS:travopr ost (TRAVATAN Z) 0.004 % ophthalmic drops Use 1 Drop in the righteye daily at bedtime.omeprazole (PRILOSEC) 20 mg capsule Take 1 capsule by mouth once daily.General, constitutional: Weight loss or gain- No, Fever or chills-No,Weakness-No, Trouble sleeping-No.Head, Eyes, Ears, Mouth: Headache, head injury-No, Glasses or contactlenses-No, Pain-No, Impaired vision-No, Decreased hearing-No, Ringing inears-No, Nose bleeds-No, Dental difficulties-No, Bleeding gums-No,Dentures-No.Neck: Swelling-No, Pain-No, Stiffness-No.Respiratory: Cough-No, Spitting up blood-No, Shortness of breath-No,Wheezing or asthma-No.Musculoskeletal: Muscle or joint pain or stiffness-No, Joint swelling-No.Gastrointestinal : Difficulty swallowing-No, Heartburn-No, Change in bowelhabits-No, Blood in stool, Dark black stools-No.Neurological/Psych iatric: Weakness, paralysis-No, Numbness-No,Tingling-No, Tremor-No, Nervousness or anxiety-No, Depressed mood-No,Memory loss-No.Skin: Rash-No, Itching-No.Hematological: Easy bruising-No, Easy bleeding-No.Endocrine: Heat or cold intolerance-No, Excessive sweating-No, Frequenturination-No, Frequent thirst-No.Belinda Simpson, RNPHYSICAL EXAMINATION:BP 115/79 Pulse 78 Ht 182.9 cm (6') Wt 99.3 kg (219 lb) BMI29.70 kg/m?General: AOx3, pleasantHead and neck: no JVDLungs: clear with good bilateral air entryCardiac: RRR. Normal S1 and S2, no murmurAbdomen: positive bowel sounds, soft, nontender, nondistendedExtremities: No edemaCARDIOVASCULAR MEDICINE TESTING:ECG: Normal sinus rhythm with a FL of 124 ms, and a QTc of 417 msIMPRESSION and PlanMr. Hue is a 37 year old healthy male presenting with palpitations.1. PalpitationsHis palpitations have been present for several months and are notassociated with other concerning or alarming symptoms. The holter monitorreportedly showed occasional PVCs but was otherwise normal when read byhis field laboratory operator. His 30 monitor was only positive for a 3-4 second pause.It is very likely that his symptoms may be related to occasional PVCs,however it doesn't seem from his cardiac monitoring that he has asignificant burden of PVCs, and with a normal echo it is unlikely thatthere is a more serious underlying cardiac cause of his symptoms. Wereassured the patient and informed him to monitor his symptoms and if theybecome severe or untolerable we can reassess for the presence of PVCs andconsider a beta fabien. And therefore for now no intervention ortreatment is indicatedTo note the patient reported snoring and symptoms of sleep apnea andtherefore we recommended he gets evaluated for BERNABE.Carter Chew MDInternal Medicine, PGY-1CHenry County Hospitalger: [id number]: Addedum:We are seeing the patient for palpitations. He tells me that Holtermonitoring done shows evidence of intermittent, but infrequent PVCs.According to your note, reported episodes of SVT and long pauses weremostly related to significant underlying motion artifact. I do not havethose rhythm strips for review. Longer term monitoring has shown evidenceof pauses that occur predominately at night and as long as 3-4 seconds. Sim not have any episode of syncope and has good exercise tolerancewithout any limitations. He does report some snoring in his reportspossible apneic spells at night and for that reason, I would suggestfurther work up for sleep apnea. His pauses are predominately nocturnaland do not necessarily indicate an element of sick sinus syndrome.Furthermore, he does not have any symptoms of the same. I thereforereassurred him as to that effect. I understand that some of hispalpitations can be related to PVC and in the setting of underlyingstructurally normal heart, I do not think that further evaluation isneeded at this point, unless these symptoms become significantly morefrequent down the road. I also indicated that no specific therapy isneeded for now. He will follow up with you as indicated and I instructedhim to call us should he experience any worsening palpitations.I reviewed all clinical information and re-elicited crucial informationfrom the patient to confirm the pertinent history.? Related physicalfindings were confirmed.? Relevant ECGs, monitor rhythm strips werereviewed as well as other pertinent test results. Recommendations andplans were reviewed with the patient.Ginny Almazan MD Normal [facility] Vital Signs Date Time Vital Sign Value Performing Clinician Armeni chikis 04-21-2023 14:59-0400 Body height 182.[address] Nazario Serrano Work Phone: [facility] 04-21-2023 14:56-0400 Body mass index (BMI) [Ratio] 32.5 kg/m2 Dr. Nazario Serrano Work Phone: [facility] 04-21-2023 14:56-0400 Body weight 108.[address] Nazario Serrano Work Phone: [facility] 04-21-2023 14:56-0400 Diastolic blood pressure 80 mm[Hg] Dr. Nazario Serrano Work Phone: [facility] 04-21-2023 14:56-0400 Heart rate 80 /min Dr. Nazario Serrano Work Phone: [facility] 04-21-2023 14:56-0400 Respiratory rate 18 /min Dr. Nazario Serrano Work Phone: [facility] 04-21-2023 14:56-0400 SaO2% (BldA) [Mass fraction] 96 % Dr. Nazario Serrano Work Phone: [facility] 04-21-2023 14:56-0400 Systolic blood pressure 114 mm[Hg] Dr. Nazario Serrano Work Phone: [facility] Encounters Encounter Date Encounter Type Care Provider Facility Start: 04-21-2023 End: 04-21-[address] Nazario Serrano Work Phone: [facility] Work Phone: Start: 04-20-2023 End: 04-20-[address] Nazario Serrano Work Phone: [facility] Work Phone: Start: 04-20-2023 End: 04-20-[address] Nazario Serrano Work Phone: [facility] Start: 11-10-2017 End: 11-10-2017 Ambulatory GINNY ALMAZAN [facility] Payers Date Payer Category Payer Unknown [employer] [id number] Private Health Insurance AET [id number] Private Health Insurance [facility] [id number] Self-pay SEL[employer] PAY INSURANCE [id number] Unknown JEREMÍAS [id number] Unknown [facility] [id number] Social History Date Type Detail Facility Start: 04-21-2023 Tobacco smoking stat [facility] Unknown if ever smoked [facility] Start: 1980 Sex Assigned At Male [facility] Evaluation note Note Date & Type Note Facility Evaluation note Diagnosis Onset Date Ectopic cardiac beats acute [facility] Work Phone: Summary Purpose Family History Relationship Condition Age at Onset Recorded Date/T claudine grandfather Myocardial infarction 40 grandfather Heart murmur Unknown uncle Cardiac disease Unknown Advance Directives No Advanced Directives Records FoundNo Advanced Directives Records Found Chief Complaint and Reason for Visit Chief Complaint 1 Y FU Reason for Visit Ectopic cardiac beat s Additional Source Comments (unrecognized sect ion and content) No Status Records FoundNo Status Records Found INFORMATION SOURCE (unrecogn ized section and content) DATE CREATED AUTHOR 12/08/2017 [facility] DATE CREATED AUTHOR AUTHOR'S ORGANIZ ATION 02/19/2022 [facility] Care Teams (unrecognized sec tion and content) Team Status: Active Member Role Status Dates Dr. Nazario Serrano MD Family Provider Active Dr. Nazario Serrano MD Primary Care Provider Active Team Status: Inactive Member Role Status Dates Dr. Nazario Serrano MD Primary Care Provider, Referring Jia toro Active Arabella Live PA, PA Attending Provider Active Team Status: Inactive Member Role Status Dates Dr. Nazario Serrano MD Primary Care Provider, Attending Jia toro Active Goals (unrecognized section and content) Goals may be documented in a n alternate section FOR RECORDS PERTAINING TO PATIENTS WHO ARE OR HAVE BEEN ENROLLED IN A CHEMICAL DEPENDENCY/SUBSTANCEABUSE PROGRAM, SOME INFORMATION MAY BE OMITTED. This clinical summary was aggregated from multiple sources. Caution should be exercised in using it in the provision of clinical care. This summary normalizes information from multiple sources, and as a consequence, information in this document may materially change the coding, format and clinical context of patient data. In addition, data may be omitted in some cases. CLINICAL DECISIONS SHOULD BE BASED ON THE PRIMARY CLINICAL RECORDS. [employer] [facility]. provides no warranty or guarantee of the accuracy or completeness of information in this document.
== END | disposition home or self-care (01) ==
PROVIDERS: PCP Family Medicine; Referring Provider Family Medicine; Visit Provider Family Medicine
DX: Z00.01 Encounter for general adult medical examination with abnormal findings (principal); N20.0 Calculus of kidney; G43.909 Migraine, unspecified, not intractable, without status migrainosus; E66.811 Obesity, class 1; Z68.34 Body mass index [BMI] 34.0-34.9, adult
CPT/HCPCS: 36415; 80053; 80061; 83036; 84550; 85025